=== PATIENT | female | born 1960 | race Caucasian/White ===

== ENCOUNTER 2018-07-22 05:21 | Emergency (ER) | payer SELFPAY ==
[~2018-07-22] VITALS: Ht 175.3 cm; Wt 86.4 kg
[2018-07-22 05:24] VITALS: Ht 175.3 cm; Wt 86.4 kg
[2018-07-22] MEDS ORDERED: VENTOLIN HFA18 GM (05:26)
[2018-07-22 05:55] LABS: HEMATOCRIT 39.4 % (36.0-48.0); HEMOGLOBIN 13.5 g/dL (12-16); MCH 31.8 pg (26.0-34.0); MCHC 34.3 g/dL (31.0-37.0); MCV 92.7 fL (80.0-100.0); MEAN PLATELET VOLUME 9.4 fL (7.4-10.4); PLATELET COUNT 309 10x3/uL (130-400); RBC 4.25 10x6/uL (4.00-5.40); RDW 12.5 % (11.5-14.5); WBC 10.4 10x3/uL (4.8-10.8)
[2018-07-22 06:17] LABS: ALBUMIN 3.3 g/dL (3.4-5.0); ALKALINE PHOSPHATASE 71 U/L (46-116); ALT (SGPT) 15 U/L (10-68); BILIRUBIN - TOTAL 0.42 mg/dL (0.2-1.3); CALC OSMOLALITY 287 mosm/kg (275-300); CALCIUM 8.5 mg/dL (8.5-10.1); CARBON DIOXIDE 26.3 mmol/L (21.0-32.0); CHLORIDE - SERUM 103 mmol/L (98-107); CREATININE - SERUM 1.3 mg/dL (0.6-1.3); GLUCOSE 155 mg/dL (74-106); POTASSIUM - SERUM 4.3 mmol/L (3.5-5.1); PROTEIN - SERUM 7.8 g/dL (6.4-8.2); SODIUM 141 mmol/L (136-145); UREA NITROGEN 23 mg/dL (7-18); eGFR NON AFRICAN AMERICAN 45 mL/min (90-120)
[2018-07-22 06:23] LABS: CKMB 1.4 U/L (0.0-3.6); CREATINE KINASE 129 UL (21-215); PRO BNP 158 pg/mL (0-125); TROPONIN-I < 0.017 ng/mL (0.000-0.060)
[2018-07-22 06:25] LABS: APTT 29.5 SECONDS (22.8-39.4); INR 1.02 (0.85-1.17); PROTIME 12.9 SECONDS (11.6-15.0)
[2018-07-22 07:09] LABS: BASOPHILS 2 % (0-2); EOSINOPHILS 22 % (0-7); HYPOCHROMASIA OCC; LYMPHOCYTES 22 % (15-50); MONOCYTES 8 % (2-11); NEUTROPHILS 46 % (40-80); PLATELET ESTIMATE NORMAL
[2018-07-22] MEDS ORDERED: IPRAT-ALBUT 0.5-3 ML UPD (07:37)
[2018-07-22] MEDS ORDERED: STERAPRED DS 1210 MG PO (07:37)
[2018-07-22 07:48] VITALS: BP 101/55
== END 2018-07-22 07:49 | disposition home or self-care (01) ==
LOC: D.ER 05:21
PROVIDERS: Family Medicine
DX: J44.9 Chronic obstructive pulmonary disease, unspecified (principal); M32.9 Systemic lupus erythematosus, unspecified; I45.4 Nonspecific intraventricular block